=== PATIENT | female | born 1990 | race African-American/Black ===

== ENCOUNTER 2017-08-14 23:22 | Emergency (ER) | payer MEDICAID, OTHER ==
[~2017-08-14] VITALS: Ht 165.1 cm; Wt 61.0 kg
[2017-08-15 02:19] LABS: CLARITY URINE CLEAR (CLEAR); COLOR URINE YELLOW (YELLOW); KETONES URINE NEGATIVE (NEGATIVE); LEUKOCYTE ESTERASE URINE NEGATIVE (NEGATIVE); NITRITE URINE NEGATIVE (NEGATIVE); OCCULT BLOOD URINE 2+ (NEGATIVE); PH URINE 5.5 (4.5-8.0); PROTEIN URINE NEGATIVE (NEGATIVE); SPECIFIC GRAVITY URINE 1.022 (1.005-1.030)
[2017-08-15 07:45] VITALS: BP 102/60
== END 2017-08-15 07:45 | disposition home or self-care (01) ==
LOC: ER 08-15 02:33
DX: L73.8 Other specified follicular disorders (principal)
CPT/HCPCS: 81003; 81025; 87210; 99284; Z7610

== ENCOUNTER 2017-08-17 09:38 | Emergency (ER) | payer MEDICAID ==
[~2017-08-17] VITALS: Ht 162.6 cm; Wt 54.0 kg
[2017-08-17 12:34] LABS: CLARITY URINE CLEAR (CLEAR); COLOR URINE YELLOW (YELLOW); KETONES URINE NEGATIVE (NEGATIVE); LEUKOCYTE ESTERASE URINE 3+ (NEGATIVE); NITRITE URINE NEGATIVE (NEGATIVE); OCCULT BLOOD URINE 1+ (NEGATIVE); PH URINE 8.5 (4.5-8.0); PROTEIN URINE NEGATIVE (NEGATIVE); SPECIFIC GRAVITY URINE 1.006 (1.005-1.030); UROBILINOGEN URINE 0.2 E.U./dL (0.2-1.0)
[2017-08-17] MEDS ORDERED: IBUPROFEN 600MG TABLET PO ONE (13:00)
[2017-08-17 14:17] VITALS: BP 128/74
[2017-08-17] MEDS ORDERED: LIDOCAINE HCL/PF 1% 2ML VIAL INFIL ONE (14:30)
[2017-08-17] MEDS ORDERED: AZITHROMYCIN 500 MG TABLET PO ONE (14:30)
[2017-08-17] MEDS ORDERED: CEFTRIAXONE SODIUM 250 MG/VIAL IM ONE (14:30)
[2017-08-17] MEDS ORDERED: LIDOCAINE HCL/PF 1% 10 MG/ML 5ML VIAL ONE (15:16)
[2017-08-21 19:08] LABS: CHLAMYDIA TRACHOMATIS NAA Negative (Negative); NEISSERIA GONORRHOEAE NAA Negative (Negative)
== END 2017-08-17 15:51 | disposition home or self-care (01) ==
LOC: ER 10:28
DX: N76.0 Acute vaginitis (principal); B00.9 Herpesviral infection, unspecified; N39.0 Urinary tract infection, site not specified
CPT/HCPCS: 81003; 81025; 87086; 87210; 87491; 87591; 96372; 99284; J0696; J3490; Z7610

== ENCOUNTER 2017-10-03 15:25 | Emergency (ER) | payer MEDICAID, OTHER ==
[~2017-10-03] VITALS: Ht 165.1 cm; Wt 63.0 kg
[2017-10-03 18:59] VITALS: BP 136/75
== END 2017-10-03 19:02 | disposition home or self-care (01) ==
LOC: ER 15:25
DX: J02.9 Acute pharyngitis, unspecified (principal); Z98.890 Other specified postprocedural states
CPT/HCPCS: 87070; 87430; 99284